=== PATIENT | male | born 2005 | race Caucasian/White ===

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

== ENCOUNTER 2024-04-18 08:25 | Emergency (ER) | payer BC ==
[~2024-04-18] VITALS: Ht 170.2 cm; Wt 102.3 kg
[~2024-04-18 08:25] MED LIST changes: +ATARAX50 MG PO; +CIPRO 500MG TA500 MG PO; +PREDNISONE20 MG PO
[2024-04-18 08:32] VITALS: TEMP 98.3
[2024-04-18] MEDS ORDERED: NS 1,000 ML IV ONE (08:45)
[2024-04-18] MEDS ORDERED: Ondansetron 4 MG/2 ML VIAL IV ONE (08:45)
[2024-04-18 09:19] LABS: BASO % 0.3 % (0.0-2.0); EOS # 0.1 K/mm3 (0.0-0.7); EOS % 0.7 % (0.0-4.0); GRAN # 9.5 K/mm3 (1.4-6.5); GRAN % 78.1 % (42.2-75.2); HEMATOCRIT 43.6 % (42.0-52.0); HEMOGLOBIN 15.6 g/dl (13.5-18.0); LYMPH # 1.9 K/mm3 (1.2-3.4); LYMPH % 15.3 % (20.0-51.0); MEAN CELL VOLUME 87 fl (80.0-100.0); MEAN CORPUSCULAR HEMOGLOBIN 31 pg (27-31); MEAN CORPUSCULAR HGB CONC 36 g/dl (33.0-37.0); MONO # 0.7 K/mm3 (0.1-0.6); MONO % 5.3 % (1.7-9.3); PLATELET COUNT 326 K/mm3 (130-400); RED BLOOD COUNT 5.01 M/mm3 (4.20-5.60)
[2024-04-18 09:43] LABS: ALBUMIN 4.6 g/dL (3.5-5.0); BILIRUBIN,TOTAL 0.8 mg/dL (0.2-1.2); C-REACTIVE PROTEIN 0.2 mg/dL (0.00-0.50); CALCIUM 10.4 mg/dL (8.4-10.2); CREATININE, serum 1.06 mg/dL (0.72-1.25); POTASSIUM 3.6 mEq/L (3.5-4.5); TOTAL PROTEIN 8.4 g/dl (6.2-8.1)
[2024-04-18] MEDS ORDERED: Iohexol 300 - 100 ML VIAL IV ONE (11:49)
[2024-04-18] MEDS ORDERED: NS 100 ML IV SCH (11:51)
[2024-04-18 12:51] VITALS: BP 124/81; PULSE 74
== END 2024-04-18 12:51 | disposition home or self-care (01) ==
LOC: COL.ER 08:25
PROVIDERS: Emergency Medicine
DX: K62.5 Hemorrhage of anus and rectum (principal)
CPT/HCPCS: J2405; J7030; Q9967

== ENCOUNTER 2024-05-24 10:15 | Day surgery (SDC) | payer BC ==
[~2024-05-24] VITALS: Ht 170.2 cm; Wt 101.4 kg
[~2024-05-24 10:15] MED LIST changes: +LR 1,000 ML IV SCH; +Ondansetron 4 MG/2 ML VIAL IV PRN
[2024-05-24 10:46] VITALS: BP 144/89; PULSE 102; TEMP 98.1
--- NOTE | 2024-05-24 11:19 | NUR ---
Patient admitted to [facility] [place] [facility] at 1036. Admission assessments completed. Consent signed. Allergies, medications, and pharmacy confirmed. 20G IV inserted into RFA, LR infusing without difficulty. Pt is alert, oriented x4, ambulates with steady gait. Reports bowel prep effective, to BR twice since arrival. REsting in recliner chair. Call light within reach.
[2024-05-24] MEDS ORDERED: Lidocaine PF 2% (20 MG/ML) 5 ML VIAL ONE (11:38)
[2024-05-24 12:25] VITALS: BP 131/91; PULSE 78
[2024-05-24 12:40] VITALS: BP 144/101; PULSE 69
== END 2024-05-24 13:00 | disposition home or self-care (01) ==
LOC: SDCO 10:15
DX: R19.7 Diarrhea, unspecified (principal); K92.1 Melena; R42 Dizziness and giddiness; R15.2 Fecal urgency
CPT/HCPCS: J2704; J7120